=== PATIENT | female | born 1970 | race Caucasian/White ===

== ENCOUNTER 2018-06-15 07:18 | Emergency (ER) | payer SELFPAY ==
[~2018-06-15] VITALS: Ht 154.9 cm; Wt 77.1 kg
[~2018-06-15 07:18] MED LIST: FERR-57 PO
[2018-06-15 07:32] VITALS: BP_SYST 167
--- NOTE | 2018-06-15 07:46 | NUR ---
Patient to ER bed 3 to gown for evaluation. Side rails up. Report given to Krishna MOON.
--- NOTE | 2018-06-15 07:52 | NUR ---
ER Dr. Castanon at bedside examining patient.
--- NOTE | 2018-06-15 07:55 | NUR ---
Patient is awake, alert, oriented x4. Patient is complaining of swollen hands starting last night, pain in right hand increasing since last night, aching pain in right hand 9/10. Patient reports a history of recurrent UTI's, hysterectomy in 2016.
--- NOTE | 2018-06-15 08:08 | NUR ---
Patient ambulated to radiology, accompanied by construction technician.
--- NOTE | 2018-06-15 08:15 | NUR ---
Returned from radiology, back to [facility].
[2018-06-15 08:40] LABS: CALCIUM 8.6 mg/dL (8.4-11.0); CREATININE 0.72 mg/dL (0.55-1.30); POTASSIUM 3.8 mmol/L (3.5-5.1)
[2018-06-15 08:42] LABS: HEMATOCRIT 40.5 % (36-48); HEMOGLOBIN 13.7 g/dL (12.0-16.0); INR 0.9 (0.8-1.2); MEAN CORPUSCULAR HEMOGLOBIN 29 pg (27-31); MEAN CORPUSCULAR HGB CONC 34 % (32-36); MEAN CORPUSCULAR VOLUME 86 fL (79.0-98.0); PLATELET COUNT (AUTO) 335 K/uL (130-430); PROTHROMBIN TIME 9.2 SECS (9.5-12.5); RED BLOOD CELL COUNT(AUTO) 4.72 MIL/uL (4.2-6.2); RED CELL DISTRIBUTION WIDTH 14.4 % (9.0-15.0); WHITE BLOOD COUNT (AUTO) 12.3 K/uL (4.8-10.8)
[2018-06-15 08:43] LABS: BASOPHILS # (AUTO) 0.1 K/uL (0.0-0.2); BASOPHILS % (AUTO) 0.7 % (0.0-2.0); EOSINOPHILS # (AUTO) 0.4 K/uL (0.0-0.4); LYMPHOCYTES # (AUTO) 2.3 K/uL (1.0-5.5); LYMPHOCYTES % (AUTO) 18.4 % (20.5-51.5); MONOCYTES # (AUTO) 0.5 K/uL (0.0-1.0); MONOCYTES % (AUTO) 3.6 % (1.7-9.3); NEUTROPHILS # (AUTO) 9.2 K/uL (1.8-7.7); NEUTROPHILS % (AUTO) 74.3 % (40.0-70.0)
[2018-06-15 08:51] LABS: ALBUMIN 3.4 g/dL (3.4-4.8); TOTAL BILIRUBIN 0.4 mg/dL (0.0-1.0); URIC ACID 4.3 mg/dL (2.4-7.0)
[2018-06-15 09:21] LABS: ERYTHROCYTE SEDIMENTATION RATE 25 MM/HR (0-20)
--- NOTE | 2018-06-15 09:35 | NUR ---
Dr. Castanon made aware of patient's pain. He verbalized understanding.
[2018-06-15 09:51] VITALS: BP_SYST 148
--- NOTE | 2018-06-15 09:51 | NUR ---
Patient given written and verbal discharge instructions and verbalizes understanding. ER MD discussed with patient the results and treatment provided. Patient in stable condition. ID arm band removed. IV catheter removed intact and dressing applied, no active bleeding. Rx of norco, motrin, prednisone given. Patient educated on pain management and to follow up with PMD. Pain Scale 8/10, Dr. Castanon is aware. Opportunity for questions provided and answered. Medication side effect fact sheet provided.
== END 2018-06-15 09:51 | disposition home or self-care (01) ==
LOC: SED 07:18
DX: M25.541 Pain in joints of right hand (principal); Z86.2 Personal history of diseases of the blood and blood-forming organs and certain disorders involving the immune mechanism
CPT/HCPCS: 36415; 80053; 81025; 84550-TC; 85025; 85610-TC; 85651-TC; 85730-TC; 86140; 99284